=== PATIENT | female | born 1970 | race Caucasian/White ===

== ENCOUNTER 2019-07-17 07:07 | Day surgery (SDC) | payer BC ==
[~2019-07-17] VITALS: Ht 167.6 cm; Wt 66.7 kg
[~2019-07-17 07:07] MED LIST: ATEN50 PO; Angeliq 0.5 MG1 EACH; BUDE6HFA; Celexa40 MG; ESOM20; Estradiol1 MG PO; L-METHYLFOLATE7.5 MG; LEVSOD150 PO; METF500 PO; MODA200 PO; MOMENI; OMEPRAZOLE20 MG; PROG100 PO; SUMA25 PO; TOPI25 PO; TRAM50; ZYRTEC10 M1 PO
--- NOTE | 2019-07-17 08:43 | NUR ---
07/17/19 0843 Aimee SultanaHiller SCOPE: YELLOW/RED, NUMBER [id number].
== END 2019-07-17 09:30 | disposition home or self-care (01) ==
LOC: ORSCSDS 07:07
PROVIDERS: Surgery
PROC: 0DJD8ZZ Inspection of Lower Intestinal Tract, Via Natural or Artificial Opening Endoscopic (ICD-10-PCS; principal; 2019-07-17 08:30)
DX: Z12.11 Encounter for screening for malignant neoplasm of colon (principal); K57.30 Diverticulosis of large intestine without perforation or abscess without bleeding; G47.33 Obstructive sleep apnea (adult) (pediatric); J45.909 Unspecified asthma, uncomplicated; E03.9 Hypothyroidism, unspecified; K21.9 Gastro-esophageal reflux disease without esophagitis; Z87.891 Personal history of nicotine dependence; Z79.899 Other long term (current) drug therapy
CPT/HCPCS: J2704; J7120

== ENCOUNTER 2020-05-09 11:28 | Emergency (ER) | payer BC ==
[~2020-05-09] VITALS: Ht 167.6 cm; Wt 68.0 kg
[2020-05-09] MEDS ORDERED: ESTRADIOL0.5 MG PO (11:46)
[2020-05-09] MEDS ORDERED: PROG100 PO (11:47)
[2020-05-09] MEDS ORDERED: MONT10T PO (11:48)
[2020-05-09] MEDS ORDERED: LEVO T PO (11:48)
[2020-05-09] MEDS ORDERED: MODA200 PO (11:48)
[2020-05-09] MEDS ORDERED: FLUT1DIS5 INH (11:48)
[2020-05-09] MEDS ORDERED: AZELASTINE137 MCG/01 (11:49)
[2020-05-09] MEDS ORDERED: TESTOSTERONE100 MG PO (11:50)
[2020-05-09] MEDS ORDERED: OMEP20ER PO (11:51)
[2020-05-09] MEDS ORDERED: TRAM50 PO (11:51)
[2020-05-09] MEDS ORDERED: ONDA4 PO (11:51)
[2020-05-09 12:20] LABS: BASOPHILS ABSOLUTE AUTO 0.02 K/mm3 (0.00-0.23); BASOPHILS PERCENT AUTO 0 % (0-2); EOSINOPHILS ABSOLUTE AUTO 0.07 K/mm3 (0.00-0.68); EOSINOPHILS PERCENT AUTO 1 % (0-6); Hematocrit 40.5 % (33.0-51.0); Hemoglobin 13.3 g/dL (11.5-16.0); IMMATURE GRAN ABSOLUTE AUTO 0.02 K/mm3 (0.00-0.10); IMMATURE GRAN PERCENT AUTO 0 % (0-1); LYMPHOCYTES ABSOLUTE AUTO 1.98 K/mm3 (0.84-5.20); LYMPHOCYTES PERCENT AUTO 32 % (21-46); MONOCYTES ABSOLUTE AUTO 0.44 K/mm3 (0.16-1.47); MONOCYTES PERCENT AUTO 7 % (4-13); Mean Corpuscular HGB 31.7 pg (26.0-34.0); Mean Corpuscular HGB Conc 32.8 g/dL (31.5-36.5); Mean Corpuscular Volume 96 fL (80-100); Mean Platelet Volume 9.6 fL (9.1-12.4); NEUTROPHILS ABSOLUTE AUTO 3.61 K/mm3 (1.96-9.15); NEUTROPHILS PERCENT AUTO 59 % (41-73); Platelet Count 203 K/mm3 (150-400); RDW Coefficient Variation 12.1 % (11.7-14.2); RDW Standard Deviation 43.3 fL (35.1-46.3); White Blood Cell Count 6.14 K/mm3 (4.00-11.30)
[2020-05-09 12:43] LABS: Alanine Aminotransfer (ALT/SGP 44 U/L (12-78); Albumin, Blood 4.1 g/dL (3.4-5.0); Albumin/Globulin Ratio 1.1 (0.8-1.8); Alk Phos 53 U/L (50-136); Anion Gap 3 mmol/L (6-16); Aspartate Aminotrans (AST/SGOT 23 U/L (12-37); Bilirubin, Total 0.3 mg/dL (0.1-1.0); Blood Urea Nitrogen 16 mg/dL (8-24); Bun/Creatinine Ratio 26.4 (12.0-20.0); CO2, Blood 29 mmol/L (21-32); Calcium, Blood 8.9 mg/dL (8.5-10.1); Chloride, Blood 109 mmol/L (98-108); Creatinine, Blood 0.61 mg/dL (0.40-1.00); Globulin, Blood 3.8 g/dL (2.2-4.0); Glomerular Filtration Rate >60 (60-); Glucose, Blood 90 mg/dL (70-99); Potassium, Blood 4.4 mmol/L (3.5-5.5); Sodium, Blood 141 mmol/L (136-145); Total Protein, Blood 7.9 g/dL (6.4-8.2)
== END 2020-05-09 19:27 | disposition home or self-care (01) ==
LOC: ER 11:28
PROVIDERS: Physician Assistant
DX: R42 Dizziness and giddiness (principal); J45.909 Unspecified asthma, uncomplicated; Z79.899 Other long term (current) drug therapy; Z88.1 Allergy status to other antibiotic agents; Z88.0 Allergy status to penicillin; Z88.2 Allergy status to sulfonamides; Z88.8 Allergy status to other drugs, medicaments and biological substances; Z88.6 Allergy status to analgesic agent
CPT/HCPCS: 36415; 70450; 70544; 70553; 80053; 85025; 93005; 93010; 99284-25; A9577

== ENCOUNTER 2023-08-14 12:37 | Emergency (ER) | payer OTHER ==
[~2023-08-14] VITALS: Ht 167.6 cm; Wt 70.3 kg
[~2023-08-14 12:37] MED LIST changes: +AZELASTINE137 MCG/01; +ESTRADIOL0.5 MG PO; +FLUT1DIS5 INH; +LEVO T PO; +MONT10T PO; +OMEP20ER PO; +ONDA4 PO; +TESTOSTERONE100 MG PO; +TRAM50 PO
[2023-08-14 12:54] VITALS: BP 126/85
[2023-08-14] MEDS ORDERED: Tetanus and Diphtheria Toxoid 0.5 ML INJ IM ONE (13:20)
[2023-08-14] MEDS ORDERED: DOXY100 PO (14:07)
[2023-08-14] MEDS ORDERED: Doxycycline Hyclate 100 MG TAB PO ONE (14:50)
== END 2023-08-14 14:59 | disposition home or self-care (01) ==
LOC: ER 12:37
DX: S01.511A Laceration without foreign body of lip, initial encounter (principal); Z23 Encounter for immunization; G43.909 Migraine, unspecified, not intractable, without status migrainosus; G47.30 Sleep apnea, unspecified; J45.909 Unspecified asthma, uncomplicated; Z79.899 Other long term (current) drug therapy; Z88.0 Allergy status to penicillin; Z88.1 Allergy status to other antibiotic agents; Z88.2 Allergy status to sulfonamides; Z88.8 Allergy status to other drugs, medicaments and biological substances; W54.0XXA Bitten by dog, initial encounter
CPT/HCPCS: 12011; 90471; 90714; 99282-25; A9270

== ENCOUNTER 2025-06-25 13:16 | Observation (INO) | payer OTHER ==
[~2025-06-25] VITALS: Ht 170.2 cm; Wt 76.7 kg
[~2025-06-25 13:16] MED LIST changes: +DOXY100 PO; +EUTHYROX88 MCG PO; -LEVO T PO
[2025-06-25 13:38] LABS: BASOPHILS ABSOLUTE AUTO 0.02 K/mm3 (0.00-0.23); BASOPHILS PERCENT AUTO 0 % (0-2); EOSINOPHILS ABSOLUTE AUTO 0.00 K/mm3 (0.00-0.68); EOSINOPHILS PERCENT AUTO 0 % (0-6); Hematocrit 35.0 % (33.0-51.0); Hemoglobin 11.8 g/dL (11.5-16.0); IMMATURE GRAN ABSOLUTE AUTO 0.01 K/mm3 (0.00-0.10); IMMATURE GRAN PERCENT AUTO 0 % (0-1); LYMPHOCYTES ABSOLUTE AUTO 1.32 K/mm3 (0.84-5.20); LYMPHOCYTES PERCENT AUTO 27 % (21-46); MONOCYTES ABSOLUTE AUTO 0.44 K/mm3 (0.16-1.47); MONOCYTES PERCENT AUTO 9 % (4-13); Mean Corpuscular HGB Conc 33.7 g/dL (31.5-36.5); Mean Corpuscular Volume 100 fL (80-100); NEUTROPHILS ABSOLUTE AUTO 3.07 K/mm3 (1.96-9.15); NEUTROPHILS PERCENT AUTO 63 % (41-73); NRBC ABSOLUTE 0.00 K/mm3 (0.00-0.02); NRBC Auto 0.0 /100 WBC (0.0-0.2); Platelet Count 261 K/mm3 (150-400); RDW Coefficient Variation 13.4 % (11.7-14.2); RDW Standard Deviation 49.6 fL (35.1-46.3)
[2025-06-25] MEDS ORDERED: Ondansetron HCl 2 MG / ML 2ML Vial IV ONE (13:40)
[2025-06-25] MEDS ORDERED: Morphine Sulfate 4 MG/1 ML Injection IV ONE (13:40)
[2025-06-25] MEDS ORDERED: Nitroglycerin 1 INCH/GM PKT TOP ONE (13:45)
[2025-06-25 13:59] LABS: Alanine Aminotransfer (ALT/SGP 34.0 U/L (12-78); Albumin, Blood 3.4 g/dL (3.4-5.0); Albumin/Globulin Ratio 0.9 (0.8-1.8); Anion Gap 13.0 mmol/L (3-11); Aspartate Aminotrans (AST/SGOT 40.0 U/L (12-37); Bilirubin, Total 0.4 mg/dL (0.1-1.0); Blood Urea Nitrogen 11.0 mg/dL (8-24); CO2, Blood 22.0 mmol/L (21-32); Calcium, Blood 8.2 mg/dL (8.5-10.1); Chloride, Blood 105.0 mmol/L (98-108); Creatinine, Blood 0.43 mg/dL (0.40-1.00); Globulin, Blood 3.7 g/dL (2.2-4.0); Glucose, Blood 122.0 mg/dL (70-99); Potassium, Blood 4.0 mmol/L (3.5-5.5); Sodium, Blood 136.0 mmol/L (136-145); Total Protein, Blood 7.1 g/dL (6.4-8.2)
[2025-06-25] MEDS ORDERED: Lidocaine 2% Viscous Soln 15 ML UDC PO ONE (14:35)
[2025-06-25] MEDS ORDERED: Ondansetron HCl 2 MG / ML 2ML Vial IV PRN (15:30)
[2025-06-25] MEDS ORDERED: FLU VACC TS2025-26(6MOS UP)/PF 45 MCG/0.5 ML SYRINGE IM SCH (15:35)
[2025-06-25 16:16] LABS: CHOL/HDL RATIO 1.4; Cholesterol 114 mg/dL (50-200); HDL Cholesterol 79 mg/dL (>39); LDL/HDL RATIO 0.2; Low Density Lipoprotein Chol 12 mg/dL (0-110); Triglycerides 114 mg/dL (30-160); Very Low Density Lipoprot Chol 22 mg/dL (6-32)
[2025-06-25 17:17] VITALS: BP 135/87
[2025-06-25] MEDS ORDERED: METF500C PO (17:26)
[2025-06-25] MEDS ORDERED: ABILIFY MYCITE2 M2 PO (17:27)
[2025-06-25] MEDS ORDERED: Prozac40 MG PO (17:27)
[2025-06-25] MEDS ORDERED: GABA100 PO (17:28)
[2025-06-25] MEDS ORDERED: METO25ER PO (17:28)
[2025-06-25] MEDS ORDERED: FLUO10 PO (18:52)
[2025-06-25] MEDS ORDERED: METPRE4 PO (18:54)
[2025-06-25] MEDS ORDERED: NURTEC ODT75 MG PO (19:00)
[2025-06-25] MEDS ORDERED: KETO60I IM (19:02)
[2025-06-25] MEDS ORDERED: EUTHYROX88 MC1 PO (19:06)
--- NOTE | 2025-06-25 19:21 | NUR ---
SHIFT SUMMARY ASSUMED CARE AT APPROX 1645. NPO AT MIDNIGHT 06/25 FOR EXPECTED STRESS TEST 06/26, EXPECTED ECHO 06/26. A/O X4, PLEASANT AND COOPERATIVE WITH CARE, ABLE TO COMMUNICATE NEEDS, USES CALL LIGHT APPROPRIATELY. PT ENDORSES MILD CHEST PAIN THAT RADIATES TO JAW RATED 2/10, MILD CHEST PRESSURE, SINUS TACH, PT REPORTS TACHYDYSRHYTHMIA AT BASELINE TREATED WITH 25MG METOPROLOL AT HOME, PT REPORTS SHE TOOK 50 MG TODAY DUE TO HTN. SPO2 >92% ON RA, DENIES SOB, SPEAKING IN COMPLETE SENTENCES. INDEPENDENT IN ROOM, ORIENTED TO CALL DON T FALL AND CALL LIGHT.
[2025-06-25 19:37] VITALS: BP 133/87
[2025-06-25 23:28] VITALS: BP 138/76
[2025-06-26 04:12] LABS: BASOPHILS ABSOLUTE AUTO 0.01 K/mm3 (0.00-0.23); BASOPHILS PERCENT AUTO 0 % (0-2); EOSINOPHILS ABSOLUTE AUTO 0.01 K/mm3 (0.00-0.68); EOSINOPHILS PERCENT AUTO 0 % (0-6); Hematocrit 31.9 % (33.0-51.0); Hemoglobin 10.6 g/dL (11.5-16.0); IMMATURE GRAN ABSOLUTE AUTO 0.01 K/mm3 (0.00-0.10); IMMATURE GRAN PERCENT AUTO 0 % (0-1); LYMPHOCYTES ABSOLUTE AUTO 1.43 K/mm3 (0.84-5.20); LYMPHOCYTES PERCENT AUTO 30 % (21-46); MONOCYTES ABSOLUTE AUTO 0.54 K/mm3 (0.16-1.47); MONOCYTES PERCENT AUTO 11 % (4-13); Mean Corpuscular HGB Conc 33.2 g/dL (31.5-36.5); Mean Corpuscular Volume 102 fL (80-100); NEUTROPHILS ABSOLUTE AUTO 2.81 K/mm3 (1.96-9.15); NEUTROPHILS PERCENT AUTO 59 % (41-73); NRBC ABSOLUTE 0.00 K/mm3 (0.00-0.02); NRBC Auto 0.0 /100 WBC (0.0-0.2); Platelet Count 205 K/mm3 (150-400); RDW Coefficient Variation 13.5 % (11.7-14.2); RDW Standard Deviation 50.4 fL (35.1-46.3)
[2025-06-26 04:23] VITALS: BP 134/75
[2025-06-26 04:32] LABS: Anion Gap 8.0 mmol/L (3-11); Blood Urea Nitrogen 8.0 mg/dL (8-24); CO2, Blood 27.0 mmol/L (21-32); Calcium, Blood 8.1 mg/dL (8.5-10.1); Chloride, Blood 106.0 mmol/L (98-108); Creatinine, Blood 0.55 mg/dL (0.40-1.00); Glucose, Blood 91.0 mg/dL (70-99); Potassium, Blood 3.3 mmol/L (3.5-5.5); Sodium, Blood 138.0 mmol/L (136-145)
--- NOTE | 2025-06-26 04:36 | NUR ---
ASSUMED CARE OF PT AT 1900. PT AXOX4 AND ABLE TO USE CALL LIGHT APPROPRIATELY. PT OOB INDEPENDENTLY WITH NO PROBLEMS. NO COMPLAINTS OF CHEST PAIN AT THIS TIME. RECIEVED ONE DOSE OF ZOFRAN FOR NAUSEA. PT WILL HAVE STRESS TEST COMPLETED TODAY. ALL VSS. BED IN LOWEST POSITION AND CALL LIGHT WITHIN REACH.
[2025-06-26 05:13] LABS: Magnesium, Blood 2.1 mg/dL (1.6-2.4)
[2025-06-26] MEDS ORDERED: Potassium Chl 20MEQ/Water100ML 100 ML IV STA (05:32)
[2025-06-26] MEDS ORDERED: NS 250 ML IV PRN (06:50)
[2025-06-26 07:30] VITALS: BP 142/85
--- NOTE | 2025-06-26 07:48 | NUR ---
0700 assumed pt Patient alert and oriented x 4. Patient able to maew. Patient being seen by [facility] med staff this am. Patient VS stable, afebrile. Pulse in 94. Having some pain at iv site on left ac d/t potassium replacement even with tko. Patient iv flush without difficulty. Patient has left with chemistry technical officer at 0745. Ambulated to w/c without difficulty. Lungs Clear T/O on Room air.
[2025-06-26] MEDS ORDERED: Enoxaparin 40 MG/0.4 ML SYR SC SCH (09:00)
[2025-06-26 12:30] VITALS: BP 126/82
[2025-06-26] MEDS ORDERED: BUSP5 PO (13:16)
[2025-06-26 13:41] VITALS: BP 135/87
--- NOTE | 2025-06-26 13:48 | NUR ---
DC INFORMATION AND PACKET GONE OVER WITH PT. PAPERWORK SIGNED, VS COMPLETED. PT'S IV DC'D , PT WALKING OUT. SON IS DRIVING HER HOME. NO NEW INFOR. AT THIS TIME.
== END 2025-06-26 13:50 | disposition home or self-care (01) ==
LOC: ER 13:16 → PCU 13:17
PROVIDERS: Emergency Medicine; ADMIT Student in an Organized Health Care Education/Training Program
DX: R07.2 Precordial pain (principal); R00.0 Tachycardia, unspecified; G47.33 Obstructive sleep apnea (adult) (pediatric); G47.419 Narcolepsy without cataplexy; J45.909 Unspecified asthma, uncomplicated; E03.9 Hypothyroidism, unspecified; Z88.0 Allergy status to penicillin; Z88.2 Allergy status to sulfonamides; Z88.8 Allergy status to other drugs, medicaments and biological substances; Z87.891 Personal history of nicotine dependence
CPT/HCPCS: 36415; 71045; 78452; 80048; 80053; 80061; 83036; 83735; 84443; 84484; 85025; 93005; 93010; 93017; 94762; 96374; 96375; 96376; 99285-25; A9270; A9500; G0378; J0706; J1650; J2270; J2405; J2785; J3480; J7050